=== PATIENT | male | born 2000 | race Two or more races ===

== ENCOUNTER 2021-04-11 17:35 | Emergency (ER) | payer OTHER ==
[~2021-04-11] VITALS: Ht 175.3 cm; Wt 81.6 kg
[2021-04-11 18:13] VITALS: BP 142/83
== END 2021-04-11 18:24 | disposition home or self-care (01) ==
LOC: ER 17:35
DX: Z20.822 Contact with and (suspected) exposure to COVID-19 (principal)
CPT/HCPCS: 99283; C9803; U0003